=== PATIENT | male | born 1995 | race Caucasian/White ===

== ENCOUNTER → 2016-12-15 | Outpatient (CLI) | payer OTHER ==
--- NOTE | 2016-12-15 09:57 | RAD ---
INDICATION: difficulty ambulating, back pain COMPARISON: None. IMPRESSION: Lumbar spine: 3 views obtained without acute fracture or dislocation. There be some very mild spurring at some of the vertebral body endplates.
--- NOTE | 2016-12-15 09:58 | RAD ---
INDICATION: arthritis, difficulty ambulating, knee pain COMPARISON: None. IMPRESSION: Right knee: 2 views obtained. No definite acute fracture or dislocation. There is evidence of degenerative changes with suspected mild osteophyte formation including at the patellofemoral compartment.
== END | disposition home or self-care (01) ==
LOC: DXRAD 09:01
PROVIDERS: ATTEND Neuromusculoskeletal Medicine, Sports Medicine
DX: M17.11 Unilateral primary osteoarthritis, right knee (principal); M54.40 Lumbago with sciatica, unspecified side
CPT/HCPCS: 72100; 73560